=== PATIENT | female | born 1990 ===

== ENCOUNTER 2019-05-17 16:48 | Inpatient (IN) ==
[2019-05-17] MEDS ORDERED: ALBUTEROL/IPRATROPIUM 3 ML NEB RESP TX STA (17:32)
[2019-05-17] MEDS ORDERED: PIPERACILLIN/TAZOBACTAM 3,375 MG in SODIUM CHLORIDE 0.9% 100 ML IV STA (17:32)
[2019-05-17] MEDS ORDERED: VANCOMYCIN INJ 1,000 MG in SODIUM CHLORIDE 0.9% 250 ML IV STA (17:32)
[2019-05-17] MEDS ORDERED: SODIUM CHLORIDE 0.9% 1,000 ML IV STA (17:32)
[2019-05-17] MEDS ORDERED: VANCOMYCIN 1,000 MG VIAL ONE (17:47)
[2019-05-17 17:56] LABS: INR 0.9
[2019-05-17 18:04] LABS: Troponin I < 0.015 NG/ML (0.00-0.045)
[2019-05-17 18:07] LABS: Basophils # 0.1 10*3/uL (0.0-0.2); Basophils % 0.5 % (0.0-0.8); Eosinophils # 0.3 10*3/uL (0.0-0.87); Hematocrit 38.5 VOL% (35.7-47.0); Hemoglobin 11.3 GM/DL (12.0-16.0); Immature Granulocytes Absolute 0.17 #; Lymphocytes # 4.7 10*3/uL (1.4-4.0); Lymphocytes % 28.9 % (21.3-54.2); Mean Corpuscular HGB Conc 29.4 GM/DL (32-36); Mean Corpuscular Volume 84.1 FL (87-102); Mean Platelet Volume 9.6 FL (9.6-12.0); Monocytes % 6.3 % (1.7-12.7); Neutrophils % 61.3 % (38.7-73.9); Platelet Count 517 T/CUMM (130-400); Red Blood Count 4.58 MC/CUMM (3.8-5.5); Red Cell Distribution Width 16.7 % (9.3-17.3); White Blood Count 16.4 T/CUMM (4-12)
[2019-05-17 18:27] LABS: Apearance,Urine Slightly Hazy (Clear); Bacteria,Urine Occasional /HPF (Few); Bilirubin,Urine Negative (Negative); Blood, Urine Small mg/dL (Negative); Calcium Oxalate Crystals,Urine Moderate /HPF (Few); Glucose,Urine (UA) Negative (Negative); Ketones,Urine Negative (Negative); Mucus,Urine Occasional /LPF (Occasional); Nitrite,Urine Negative (Negative); Protein,Urine Negative; RBC,Urine 3 /HPF (0-4); Squamous Epithelial Cell,Urine Occasional /HPF (0-10); Urine Color Yellow (Yellow); Urine Specific Gravity 1.028 (1.001-1.035); Urine Urobilinogen < 2.0 EU/DL (0.2-1.0); WBC,Urine 2 /HPF (0-6)
[2019-05-17 18:56] LABS: Alanine Aminotransferase 34 U/L (13-56); Albumin 3.3 G/DL (3.4-5.0); Alkaline Phosphatase 110 U/L (45-117); Aspartate Amino Transferase 33 U/L (0-37); Bilirubin,Total < 0.39 MG/DL (0.2-1.0); Blood Urea Nitrogen 12 MG/DL (7-18); Calcium 8.9 MG/DL (8.5-10.1); Estimated Glom Filtration Rate 127 ML/MIN; Glucose 93 MG/DL (74-106); Osmolality,Calculated 276.5 MOS/KG (273-304); Total Protein 7.8 G/DL (6.4-8.3)
[2019-05-17] MEDS ORDERED: ALBUTEROL SULFATE INH PRN (21:53)
[2019-05-17] MEDS ORDERED: ACETAMINOPHEN 325 MG TABLET PO PRN (21:53)
[2019-05-17] MEDS ORDERED: MAGNESIUM SULF RIDER 2 GM in PREMIX 1 EACH IV PRN (21:53)
[2019-05-17] MEDS ORDERED: MAGNESIUM SULF RIDER 4 GM in PREMIX 1 EACH IV PRN (21:53)
[2019-05-17] MEDS: traZODone 50 MG TABLET PO SCH (22:04)
[2019-05-17] MEDS: DULoxetine 30 MG CAPSULE PO SCH (22:04)
[2019-05-17] MEDS: SODIUM CHLORIDE 0.9% 1,000 ML IV SCH (22:05)
[2019-05-18] MEDS: VANCOMYCIN INJ 1,500 MG in SODIUM CHLORIDE 0.9% 500 ML IV SCH ×3 (00:13→17:12)
[2019-05-18] MEDS: PIPERACILLIN/TAZOBACTAM 3,375 MG in SODIUM CHLORIDE 0.9% 100 ML IV SCH ×3 (02:34→18:29)
[2019-05-18 06:17] LABS: Calcium 8.2 MG/DL (8.5-10.1); Osmolality,Calculated 281.3 MOS/KG (273-304)
[2019-05-18] MEDS: POTASSIUM CHLORIDE 20 MEQ TABLET PO PRN ×4 (06:24→14:24)
[2019-05-18 06:40] LABS: Basophils # 0.1 10*3/uL (0.0-0.2); Basophils % 0.7 % (0.0-0.8); Eosinophils # 0.5 10*3/uL (0.0-0.87); Eosinophils % 3.6 % (0.00-10.9); Hematocrit 32.2 VOL% (35.7-47.0); Hemoglobin 9.8 GM/DL (12.0-16.0); Immature Granulocytes % 0.9 %; Immature Granulocytes Absolute 0.11 #; Lymphocytes # 3.5 10*3/uL (1.4-4.0); Lymphocytes % 28.3 % (21.3-54.2); Mean Corpuscular HGB Conc 30.4 GM/DL (32-36); Mean Platelet Volume 9.6 FL (9.6-12.0); Monocytes % 6.2 % (1.7-12.7); Neutrophils % 60.3 % (38.7-73.9); Platelet Count 389 T/CUMM (130-400); Red Blood Count 3.88 MC/CUMM (3.8-5.5); Red Cell Distribution Width 16.7 % (9.3-17.3); White Blood Count 12.5 T/CUMM (4-12)
[2019-05-18] MEDS: SODIUM CHLORIDE 0.9% 1,000 ML IV SCH (12:20)
[2019-05-18] MEDS: IBUPROFEN 600 MG TABLET PO PRN (16:07)
[2019-05-18] MEDS: MORPHINE 4 MG/1 ML VIAL IV PRN (17:11)
[2019-05-18] MEDS: DULoxetine 30 MG CAPSULE PO SCH (20:19)
[2019-05-18] MEDS: traZODone 50 MG TABLET PO SCH (20:19)
[2019-05-19] MEDS: VANCOMYCIN INJ 1,500 MG in SODIUM CHLORIDE 0.9% 500 ML IV SCH ×3 (01:54→18:07)
[2019-05-19] MEDS: MORPHINE 4 MG/1 ML VIAL IV PRN ×5 (02:12→19:33)
[2019-05-19 05:44] LABS: Calcium 8.4 MG/DL (8.5-10.1); Osmolality,Calculated 274.5 MOS/KG (273-304)
[2019-05-19 06:00] LABS: Basophils # 0.1 10*3/uL (0.0-0.2); Basophils % 0.6 % (0.0-0.8); Eosinophils # 0.8 10*3/uL (0.0-0.87); Eosinophils % 5.7 % (0.00-10.9); Hematocrit 34.6 VOL% (35.7-47.0); Hemoglobin 9.9 GM/DL (12.0-16.0); Immature Granulocytes % 1.7 %; Immature Granulocytes Absolute 0.24 #; Lymphocytes # 3.2 10*3/uL (1.4-4.0); Lymphocytes % 22.7 % (21.3-54.2); Mean Corpuscular HGB Conc 28.6 GM/DL (32-36); Mean Corpuscular Volume 84.4 FL (87-102); Mean Platelet Volume 9.4 FL (9.6-12.0); Monocytes % 5.1 % (1.7-12.7); NRBC # 0.03 10*3/uL; Neutrophils % 64.2 % (38.7-73.9); Platelet Count 367 T/CUMM (130-400); Red Cell Distribution Width 16.1 % (9.3-17.3); White Blood Count 14.3 T/CUMM (4-12)
[2019-05-19] MEDS: PIPERACILLIN/TAZOBACTAM 3,375 MG in SODIUM CHLORIDE 0.9% 100 ML IV SCH ×3 (06:05→21:48)
[2019-05-19] MEDS ORDERED: BUPIVACAINE 0.25% /EPI 10 ML VIAL ONE (08:06)
[2019-05-19] MEDS ORDERED: LIDOCAINE 1%/EPI INJ 20 ML VIAL ONE (08:06)
[2019-05-19] MEDS ORDERED: KETOROLAC 30 MG/1 ML VIAL IV ONE (09:45)
[2019-05-19] MEDS ORDERED: propofoL 200 MG/20 ML VIAL IV ONE (09:51)
[2019-05-19] MEDS ORDERED: MIDAZOLAM 2 MG/2 ML VIAL ONE (09:52)
[2019-05-19] MEDS ORDERED: DEXAMETHASONE 4 MG/1 ML VIAL ONE (09:52)
[2019-05-19] MEDS ORDERED: fentaNYL 100 MCG/2 ML VIAL ONE (09:52)
[2019-05-19] MEDS ORDERED: LIDOCAINE 2% 5 ML VIAL ONE (09:52)
[2019-05-19] MEDS ORDERED: SEVOFLURANE 1 UNIT/15 MINUTE INH ONE (09:52)
[2019-05-19] MEDS ORDERED: ONDANSETRON 4 MG/2 ML VIAL ONE (09:52)
[2019-05-19] MEDS ORDERED: KETOROLAC 30 MG/1 ML VIAL ONE (09:52)
[2019-05-19] MEDS ORDERED: HYDROmorphone 2 MG/1 ML VIAL ONE (09:53)
[2019-05-19] MEDS: HYDROmorphone 2 MG/1 ML VIAL IV PRN ×4 (09:55→10:10)
[2019-05-19] MEDS: SODIUM CHLORIDE 0.9% 1,000 ML IV SCH (16:35)
[2019-05-19] MEDS: IBUPROFEN 600 MG TABLET PO PRN (17:47)
[2019-05-19] MEDS: traZODone 50 MG TABLET PO SCH (20:14)
[2019-05-19] MEDS: DULoxetine 30 MG CAPSULE PO SCH (20:14)
[2019-05-20] MEDS: VANCOMYCIN INJ 1,500 MG in SODIUM CHLORIDE 0.9% 500 ML IV SCH ×2 (02:30→11:52)
[2019-05-20] MEDS: MORPHINE 4 MG/1 ML VIAL IV PRN ×2 (03:48→09:02)
[2019-05-20 04:57] LABS: Basophils % 0.2 % (0.0-0.8); Eosinophils # 0.1 10*3/uL (0.0-0.87); Eosinophils % 0.7 % (0.00-10.9); Immature Granulocytes % 1.8 %; Immature Granulocytes Absolute 0.33 #; Lymphocytes # 2.6 10*3/uL (1.4-4.0); Lymphocytes % 14.2 % (21.3-54.2); Mean Corpuscular HGB Conc 28.5 GM/DL (32-36); Mean Corpuscular Volume 84.7 FL (87-102); Mean Platelet Volume 9.4 FL (9.6-12.0); Monocytes % 4.5 % (1.7-12.7); NRBC # 0.03 10*3/uL; Neutrophils % 78.6 % (38.7-73.9); Platelet Count 387 T/CUMM (130-400); Red Blood Count 3.93 MC/CUMM (3.8-5.5); Red Cell Distribution Width 16.3 % (9.3-17.3); White Blood Count 17.9 T/CUMM (4-12)
[2019-05-20 05:19] LABS: Calcium 8.5 MG/DL (8.5-10.1); Osmolality,Calculated 281.4 MOS/KG (273-304)
[2019-05-20 05:41] LABS: Hematocrit 32.1 VOL% (35.7-47.0); Hemoglobin 9.7 GM/DL (12.0-16.0)
[2019-05-20 05:42] LABS: Hypochromasia 1+; Platelet Estimate Adequate
[2019-05-20] MEDS: ONDANSETRON 4 MG/2 ML VIAL IV PRN ×2 (06:35→15:03)
[2019-05-20] MEDS: PIPERACILLIN/TAZOBACTAM 3,375 MG in SODIUM CHLORIDE 0.9% 100 ML IV SCH ×2 (07:18→20:54)
[2019-05-20] MEDS ORDERED: HYDROmorphone 2 MG/1 ML VIAL IV ONE (10:25)
[2019-05-20] MEDS ORDERED: ALBUTEROL 2.5 MG/3 ML NEB RESP TX PRN (10:30)
[2019-05-20] MEDS: SODIUM HYPOCHLORITE 0.25% IRRIG 473 ML BOTTLE TOP SCH (10:49)
[2019-05-20] MEDS: ACETIC ACID 0.25% IRRIGATION 1,000 ML BOTTLE IRRIG SCH (10:49)
[2019-05-20] MEDS ORDERED: oxyCODONE/ACETAMINOPHEN 5-325 MG TABLET PO PRN (10:55)
[2019-05-20] MEDS: HYDROmorphone 2 MG/1 ML VIAL IV PRN ×4 (12:19→20:56)
[2019-05-20] MEDS: oxyCODONE/ACETAMINOPHEN 5-325 MG TABLET PO PRN (14:58)
[2019-05-20] MEDS: traZODone 50 MG TABLET PO SCH (20:56)
[2019-05-20] MEDS: DULoxetine 30 MG CAPSULE PO SCH (20:56)
[2019-05-21] MEDS: HYDROmorphone 2 MG/1 ML VIAL IV PRN ×5 (00:42→10:17)
[2019-05-21] MEDS: oxyCODONE/ACETAMINOPHEN 5-325 MG TABLET PO PRN (01:46)
[2019-05-21] MEDS: PIPERACILLIN/TAZOBACTAM 3,375 MG in SODIUM CHLORIDE 0.9% 100 ML IV SCH (03:43)
[2019-05-21] MEDS: ONDANSETRON 4 MG/2 ML VIAL IV PRN (05:30)
[2019-05-21 05:58] LABS: Basophils # 0.1 10*3/uL (0.0-0.2); Basophils % 0.4 % (0.0-0.8); Eosinophils # 0.7 10*3/uL (0.0-0.87); Eosinophils % 4.5 % (0.00-10.9); Hematocrit 34.1 VOL% (35.7-47.0); Immature Granulocytes % 2.3 %; Immature Granulocytes Absolute 0.37 #; Lymphocytes # 3.3 10*3/uL (1.4-4.0); Lymphocytes % 20.4 % (21.3-54.2); Mean Platelet Volume 9.4 FL (9.6-12.0); Monocytes % 5.8 % (1.7-12.7); NRBC # 0.02 10*3/uL; Neutrophils % 66.6 % (38.7-73.9); Platelet Count 356 T/CUMM (130-400); Red Blood Count 4.06 MC/CUMM (3.8-5.5); Red Cell Distribution Width 16.7 % (9.3-17.3); White Blood Count 16.1 T/CUMM (4-12)
[2019-05-21 06:52] LABS: Anisocytosis 1+; Hypochromasia 1+; Microcytosis 1+; Ovalocytes Slight; Platelet Estimate Normal; Polychromasia Slight
[2019-05-21] MEDS: ACETIC ACID 0.25% IRRIGATION 1,000 ML BOTTLE IRRIG SCH (09:44)
[2019-05-21] MEDS: SODIUM HYPOCHLORITE 0.25% IRRIG 473 ML BOTTLE TOP SCH (09:45)
[2019-05-21 11:54] VITALS: BP 106/60
== END 2019-05-21 12:05 | disposition home or self-care (01) | DRG 584 ==
LOC: N.ED 16:48 → SUATTDRO 20:20 → N.EDINP 20:20 → N.2E 21:48
PROVIDERS: ADMIT Internal Medicine; ATTEND Internal Medicine Geriatric Medicine

== ENCOUNTER 2019-06-20 09:09 | Inpatient (IN) ==
[~2019-06-20 09:09] MED LIST: LACTATED RINGERS 1,000 ML IV SCH
[2019-06-20] MEDS ORDERED: BUPIVACAINE MPF 0.25% 30 ML VIAL ONE (09:42)
[2019-06-20] MEDS ORDERED: LIDOCAINE 1%/EPI INJ 20 ML VIAL ONE (09:42)
[2019-06-20] MEDS ORDERED: HYDROmorphone 2 MG/1 ML VIAL ONE (10:40)
[2019-06-20] MEDS ORDERED: ONDANSETRON 4 MG/2 ML VIAL ONE ×2 (10:40→11:01)
[2019-06-20] MEDS ORDERED: MEPERIDINE 25 MG/1 ML VIAL ONE (10:40)
[2019-06-20] MEDS: MEPERIDINE 25 MG/1 ML VIAL IV PRN (10:44)
[2019-06-20] MEDS: HYDROmorphone 2 MG/1 ML VIAL IV PRN ×9 (10:50→22:48)
[2019-06-20] MEDS ORDERED: ONDANSETRON 4 MG/2 ML VIAL IV PRN (10:50)
[2019-06-20] MEDS ORDERED: LORazepam 2 MG/1 ML VIAL ONE (10:58)
[2019-06-20] MEDS ORDERED: fentaNYL 100 MCG/2 ML VIAL ONE (11:00)
[2019-06-20] MEDS ORDERED: SEVOFLURANE 1 UNIT/15 MINUTE INH ONE (11:00)
[2019-06-20] MEDS ORDERED: LIDOCAINE 2% 5 ML VIAL ONE (11:00)
[2019-06-20] MEDS ORDERED: propofoL 200 MG/20 ML VIAL IV ONE (11:00)
[2019-06-20] MEDS ORDERED: PHENYLEPHRINE 1 MG/10 ML SYRINGE IV ONE (11:01)
[2019-06-20] MEDS ORDERED: MIDAZOLAM 2 MG/2 ML VIAL ONE ×2 (11:01→11:31)
[2019-06-20] MEDS ORDERED: LORazepam 2 MG/1 ML VIAL IV ONE (11:07)
[2019-06-20] MEDS ORDERED: MIDAZOLAM 2 MG/2 ML VIAL IV ONE (11:31)
[2019-06-20] MEDS ORDERED: KETAMINE 500 MG/10 ML VIAL ONE (11:50)
[2019-06-20] MEDS ORDERED: KETAMINE 500 MG/10 ML VIAL IV ONE (11:58)
[2019-06-20] MEDS ORDERED: ALBUTEROL 2.5 MG/3 ML NEB RESP TX PRN (12:35)
[2019-06-20] MEDS: LACTATED RINGERS 1,000 ML IV SCH ×3 (13:48→20:27)
[2019-06-20 14:20] LABS: Calcium 8.6 MG/DL (8.5-10.1); Osmolality,Calculated 272.7 MOS/KG (273-304)
[2019-06-20 14:24] LABS: Basophils # 0.1 10*3/uL (0.0-0.2); Basophils % 0.5 % (0.0-0.8); Eosinophils # 0.8 10*3/uL (0.0-0.87); Eosinophils % 5.2 % (0.00-10.9); Hematocrit 35.5 VOL% (35.7-47.0); Immature Granulocytes % 0.7 %; Lymphocytes # 3.5 10*3/uL (1.4-4.0); Lymphocytes % 23.6 % (21.3-54.2); Mean Corpuscular HGB Conc 29.3 GM/DL (32-36); Mean Corpuscular Volume 80.5 FL (87-102); Mean Platelet Volume 9.4 FL (9.6-12.0); Monocytes % 3.6 % (1.7-12.7); Neutrophils % 66.4 % (38.7-73.9); Platelet Count 397 T/CUMM (130-400); Red Blood Count 4.41 MC/CUMM (3.8-5.5); Red Cell Distribution Width 17.7 % (9.3-17.3)
[2019-06-20] MEDS: ERTAPENEM 1,000 MG in SODIUM CHLORIDE 0.9% 100 ML IV SCH (14:27)
[2019-06-20 14:34] LABS: Hemoglobin 10.4 GM/DL (12.0-16.0)
[2019-06-20] MEDS: KETOROLAC 15 MG/1 ML VIAL IV PRN (15:36)
[2019-06-20] MEDS: oxyCODONE/ACETAMINOPHEN 5-325 MG TABLET PO PRN (17:52)
[2019-06-20] MEDS: DULoxetine 30 MG CAPSULE PO SCH (21:14)
[2019-06-21] MEDS: HYDROmorphone 2 MG/1 ML VIAL IV PRN ×10 (01:31→23:49)
[2019-06-21] MEDS: LACTATED RINGERS 1,000 ML IV SCH ×3 (04:11→21:59)
[2019-06-21] MEDS: oxyCODONE/ACETAMINOPHEN 5-325 MG TABLET PO PRN ×2 (04:45→10:28)
[2019-06-21] MEDS: ENOXAPARIN 40 MG/0.4 ML SYRINGE SUBCUT SCH (06:02)
[2019-06-21 06:24] LABS: Calcium 8.4 MG/DL (8.5-10.1); Osmolality,Calculated 271.8 MOS/KG (273-304)
[2019-06-21 06:27] LABS: Basophils # 0.1 10*3/uL (0.0-0.2); Basophils % 0.7 % (0.0-0.8); Eosinophils # 0.8 10*3/uL (0.0-0.87); Eosinophils % 7.6 % (0.00-10.9); Hematocrit 31.4 VOL% (35.7-47.0); Immature Granulocytes % 0.9 %; Immature Granulocytes Absolute 0.09 #; Lymphocytes # 3.2 10*3/uL (1.4-4.0); Lymphocytes % 31.7 % (21.3-54.2); Mean Corpuscular HGB Conc 28.7 GM/DL (32-36); Mean Corpuscular Volume 83.1 FL (87-102); Mean Platelet Volume 9.5 FL (9.6-12.0); Monocytes % 5.3 % (1.7-12.7); Neutrophils % 53.8 % (38.7-73.9); Platelet Count 327 T/CUMM (130-400); Red Blood Count 3.78 MC/CUMM (3.8-5.5); Red Cell Distribution Width 17.8 % (9.3-17.3)
[2019-06-21 06:34] LABS: Hypochromasia 2+; Microcytosis Slight; Platelet Estimate Adequate
[2019-06-21] MEDS: ONDANSETRON 4 MG/2 ML VIAL IV PRN ×2 (08:56→20:06)
[2019-06-21] MEDS ORDERED: DAPTOmycin 350 MG VIAL IV SCH (09:00)
[2019-06-21] MEDS: ERTAPENEM 1,000 MG in SODIUM CHLORIDE 0.9% 100 ML IV SCH (15:05)
[2019-06-21] MEDS: DULoxetine 30 MG CAPSULE PO SCH (20:07)
[2019-06-22] MEDS: HYDROmorphone 2 MG/1 ML VIAL IV PRN ×6 (02:05→22:10)
[2019-06-22] MEDS: ENOXAPARIN 40 MG/0.4 ML SYRINGE SUBCUT SCH (05:16)
[2019-06-22] MEDS: LACTATED RINGERS 1,000 ML IV SCH ×3 (05:17→22:11)
[2019-06-22] MEDS: KETOROLAC 15 MG/1 ML VIAL IV PRN (10:00)
[2019-06-22] MEDS: ERTAPENEM 1,000 MG in SODIUM CHLORIDE 0.9% 100 ML IV SCH (14:42)
[2019-06-22] MEDS: oxyCODONE/ACETAMINOPHEN 5-325 MG TABLET PO PRN (17:32)
[2019-06-22] MEDS: ONDANSETRON 4 MG/2 ML VIAL IV PRN (19:54)
[2019-06-22] MEDS: DULoxetine 30 MG CAPSULE PO SCH (19:59)
[2019-06-23] MEDS: HYDROmorphone 2 MG/1 ML VIAL IV PRN ×9 (00:07→23:45)
[2019-06-23] MEDS: LACTATED RINGERS 1,000 ML IV SCH (05:38)
[2019-06-23] MEDS: oxyCODONE/ACETAMINOPHEN 5-325 MG TABLET PO PRN ×3 (06:15→18:49)
[2019-06-23] MEDS: ENOXAPARIN 40 MG/0.4 ML SYRINGE SUBCUT SCH (06:20)
[2019-06-23] MEDS: KETOROLAC 15 MG/1 ML VIAL IV PRN (08:14)
[2019-06-23] MEDS: ERTAPENEM 1,000 MG in SODIUM CHLORIDE 0.9% 100 ML IV SCH (13:10)
[2019-06-23] MEDS: DULoxetine 30 MG CAPSULE PO SCH (20:37)
[2019-06-24] MEDS: oxyCODONE/ACETAMINOPHEN 5-325 MG TABLET PO PRN ×2 (01:00→20:53)
[2019-06-24] MEDS: HYDROmorphone 2 MG/1 ML VIAL IV PRN ×10 (02:20→22:18)
[2019-06-24] MEDS: ENOXAPARIN 40 MG/0.4 ML SYRINGE SUBCUT SCH (05:00)
[2019-06-24] MEDS: ONDANSETRON 4 MG/2 ML VIAL IV PRN ×2 (06:10→20:53)
[2019-06-24] MEDS: ERTAPENEM 1,000 MG in SODIUM CHLORIDE 0.9% 100 ML IV SCH (13:08)
[2019-06-24] MEDS: DULoxetine 30 MG CAPSULE PO SCH (20:47)
[2019-06-25] MEDS: HYDROmorphone 2 MG/1 ML VIAL IV PRN ×11 (00:03→22:20)
[2019-06-25] MEDS: ONDANSETRON 4 MG/2 ML VIAL IV PRN ×2 (04:09→20:24)
[2019-06-25] MEDS: ENOXAPARIN 40 MG/0.4 ML SYRINGE SUBCUT SCH (05:51)
[2019-06-25] MEDS: oxyCODONE/ACETAMINOPHEN 5-325 MG TABLET PO PRN ×2 (05:54→12:51)
[2019-06-25] MEDS ORDERED: SODIUM HYPOCHLORITE 0.25% IRR 1 APPLIC in IV BAG 1 EACH IRRIG PRN (09:30)
[2019-06-25] MEDS: ERTAPENEM 1,000 MG in SODIUM CHLORIDE 0.9% 100 ML IV SCH (14:13)
[2019-06-25] MEDS: DULoxetine 30 MG CAPSULE PO SCH (20:24)
[2019-06-26] MEDS: ENOXAPARIN 40 MG/0.4 ML SYRINGE SUBCUT SCH (05:59)
[2019-06-26] MEDS: HYDROmorphone 2 MG/1 ML VIAL IV PRN ×7 (06:18→23:16)
[2019-06-26] MEDS: ERTAPENEM 1,000 MG in SODIUM CHLORIDE 0.9% 100 ML IV SCH (15:25)
[2019-06-26] MEDS: DULoxetine 30 MG CAPSULE PO SCH (20:43)
[2019-06-27] MEDS: HYDROmorphone 2 MG/1 ML VIAL IV PRN ×8 (01:42→22:09)
[2019-06-27] MEDS: ENOXAPARIN 40 MG/0.4 ML SYRINGE SUBCUT SCH (06:38)
[2019-06-27] MEDS: oxyCODONE/ACETAMINOPHEN 5-325 MG TABLET PO PRN (11:00)
[2019-06-27] MEDS: ERTAPENEM 1,000 MG in SODIUM CHLORIDE 0.9% 100 ML IV SCH (14:14)
[2019-06-27] MEDS: ONDANSETRON 4 MG/2 ML VIAL IV PRN ×2 (14:37→22:20)
[2019-06-27] MEDS: DULoxetine 30 MG CAPSULE PO SCH (21:26)
[2019-06-28] MEDS: HYDROmorphone 2 MG/1 ML VIAL IV PRN ×13 (00:24→22:27)
[2019-06-28] MEDS: ENOXAPARIN 40 MG/0.4 ML SYRINGE SUBCUT SCH (05:06)
[2019-06-28] MEDS: ONDANSETRON 4 MG/2 ML VIAL IV PRN (05:44)
[2019-06-28] MEDS ORDERED: BUPIVACAINE MPF 0.25% 30 ML VIAL ONE (06:38)
[2019-06-28] MEDS ORDERED: LIDOCAINE 1%/EPI INJ 20 ML VIAL ONE (06:38)
[2019-06-28] MEDS ORDERED: MEPERIDINE 25 MG/1 ML VIAL ONE (07:58)
[2019-06-28] MEDS ORDERED: HYDROmorphone 2 MG/1 ML VIAL ONE (07:58)
[2019-06-28] MEDS ORDERED: ONDANSETRON 4 MG/2 ML VIAL ONE ×2 (07:59→08:05)
[2019-06-28] MEDS ORDERED: ONDANSETRON 4 MG/2 ML VIAL IV PRN (08:00)
[2019-06-28] MEDS ORDERED: propofoL 200 MG/20 ML VIAL IV ONE (08:04)
[2019-06-28] MEDS ORDERED: SEVOFLURANE 1 UNIT/15 MINUTE INH ONE (08:04)
[2019-06-28] MEDS ORDERED: LIDOCAINE 2% 5 ML VIAL ONE (08:04)
[2019-06-28] MEDS ORDERED: DEXAMETHASONE 4 MG/1 ML VIAL ONE (08:05)
[2019-06-28] MEDS ORDERED: fentaNYL 100 MCG/2 ML VIAL ONE (08:05)
[2019-06-28] MEDS ORDERED: MIDAZOLAM 2 MG/2 ML VIAL ONE (08:05)
[2019-06-28] MEDS ORDERED: KETAMINE 500 MG/10 ML VIAL ONE (08:05)
[2019-06-28] MEDS ORDERED: MEPERIDINE 25 MG/1 ML VIAL IV ONE (08:20)
[2019-06-28] MEDS ORDERED: LORazepam 2 MG/1 ML VIAL IV ONE ×2 (08:33→08:39)
[2019-06-28] MEDS ORDERED: LORazepam 2 MG/1 ML VIAL ONE (08:34)
[2019-06-28] MEDS: oxyCODONE/ACETAMINOPHEN 5-325 MG TABLET PO PRN (09:50)
[2019-06-28] MEDS: ERTAPENEM 1,000 MG in SODIUM CHLORIDE 0.9% 100 ML IV SCH (13:08)
[2019-06-28] MEDS: DULoxetine 30 MG CAPSULE PO SCH (20:21)
[2019-06-29] MEDS: HYDROmorphone 2 MG/1 ML VIAL IV PRN ×8 (00:27→20:23)
[2019-06-29] MEDS: oxyCODONE/ACETAMINOPHEN 5-325 MG TABLET PO PRN ×3 (01:37→18:42)
[2019-06-29] MEDS: ENOXAPARIN 40 MG/0.4 ML SYRINGE SUBCUT SCH (05:31)
[2019-06-29] MEDS: ONDANSETRON 4 MG/2 ML VIAL IV PRN (06:00)
[2019-06-29 06:22] LABS: Basophils # 0.1 10*3/uL (0.0-0.2); Basophils % 0.4 % (0.0-0.8); Eosinophils # 0.2 10*3/uL (0.0-0.87); Hemoglobin 9.3 GM/DL (12.0-16.0); Immature Granulocytes Absolute 0.16 #; Lymphocytes # 3.7 10*3/uL (1.4-4.0); Lymphocytes % 23.5 % (21.3-54.2); Mean Corpuscular HGB Conc 28.5 GM/DL (32-36); Mean Corpuscular Volume 82.5 FL (87-102); Mean Platelet Volume 9.4 FL (9.6-12.0); Monocytes % 5.4 % (1.7-12.7); NRBC # 0.03 10*3/uL; Neutrophils % 68.7 % (38.7-73.9); Platelet Count 444 T/CUMM (130-400); Red Blood Count 3.95 MC/CUMM (3.8-5.5); Red Cell Distribution Width 18.1 % (9.3-17.3); White Blood Count 15.8 T/CUMM (4-12)
[2019-06-29 06:49] LABS: Hematocrit 31.4 VOL% (35.7-47.0)
[2019-06-29 07:03] LABS: Calcium 8.5 MG/DL (8.5-10.1); Osmolality,Calculated 274.8 MOS/KG (273-304)
[2019-06-29] MEDS ORDERED: HYDROmorphone 2 MG/1 ML VIAL IV ONE (08:20)
[2019-06-29 08:43] LABS: Platelet Estimate Increased; Polychromasia Slight
[2019-06-29 08:44] LABS: Hypochromasia 1+; Microcytosis 1+
[2019-06-29] MEDS ORDERED: POTASSIUM CHLORIDE 20 MEQ TABLET PO ONE (12:41)
[2019-06-29] MEDS: clonazePAM 0.5 MG TABLET PO PRN ×2 (13:44→20:22)
[2019-06-29] MEDS: ERTAPENEM 1,000 MG in SODIUM CHLORIDE 0.9% 100 ML IV SCH (13:44)
[2019-06-29] MEDS: DULoxetine 30 MG CAPSULE PO SCH (20:07)
[2019-06-29] MEDS: QUEtiapine 25 MG TABLET PO SCH (20:22)
[2019-06-30] MEDS: HYDROmorphone 2 MG/1 ML VIAL IV PRN ×6 (05:19→21:07)
[2019-06-30] MEDS: ENOXAPARIN 40 MG/0.4 ML SYRINGE SUBCUT SCH (05:21)
[2019-06-30 09:14] LABS: Basophils # 0.1 10*3/uL (0.0-0.2); Basophils % 0.6 % (0.0-0.8); Eosinophils # 0.8 10*3/uL (0.0-0.87); Eosinophils % 7.7 % (0.00-10.9); Hematocrit 33.4 VOL% (35.7-47.0); Hemoglobin 9.4 GM/DL (12.0-16.0); Immature Granulocytes % 0.8 %; Immature Granulocytes Absolute 0.08 #; Lymphocytes # 3.6 10*3/uL (1.4-4.0); Mean Corpuscular HGB Conc 28.1 GM/DL (32-36); Mean Corpuscular Volume 82.5 FL (87-102); Mean Platelet Volume 9.5 FL (9.6-12.0); Monocytes % 4.9 % (1.7-12.7); Platelet Count 413 T/CUMM (130-400); Red Blood Count 4.05 MC/CUMM (3.8-5.5); Red Cell Distribution Width 18.2 % (9.3-17.3); White Blood Count 10.7 T/CUMM (4-12)
[2019-06-30] MEDS: oxyCODONE/ACETAMINOPHEN 5-325 MG TABLET PO PRN (09:57)
[2019-06-30] MEDS: ERTAPENEM 1,000 MG in SODIUM CHLORIDE 0.9% 100 ML IV SCH (14:57)
[2019-06-30] MEDS: DULoxetine 30 MG CAPSULE PO SCH (20:58)
[2019-06-30] MEDS: clonazePAM 0.5 MG TABLET PO PRN (20:58)
[2019-06-30] MEDS: QUEtiapine 25 MG TABLET PO SCH (20:58)
[2019-07-01] MEDS: HYDROmorphone 2 MG/1 ML VIAL IV PRN ×9 (01:21→23:00)
[2019-07-01] MEDS: ENOXAPARIN 40 MG/0.4 ML SYRINGE SUBCUT SCH (06:08)
[2019-07-01 06:34] LABS: Basophils # 0.1 10*3/uL (0.0-0.2); Basophils % 0.7 % (0.0-0.8); Eosinophils # 0.9 10*3/uL (0.0-0.87); Eosinophils % 9.5 % (0.00-10.9); Hematocrit 31.8 VOL% (35.7-47.0); Hemoglobin 9.3 GM/DL (12.0-16.0); Immature Granulocytes % 0.9 %; Immature Granulocytes Absolute 0.09 #; Lymphocytes # 2.9 10*3/uL (1.4-4.0); Lymphocytes % 29.4 % (21.3-54.2); Mean Corpuscular HGB Conc 29.2 GM/DL (32-36); Mean Corpuscular Volume 80.5 FL (87-102); Mean Platelet Volume 9.2 FL (9.6-12.0); Monocytes % 6.2 % (1.7-12.7); NRBC # 0.02 10*3/uL; Neutrophils % 53.3 % (38.7-73.9); Platelet Count 390 T/CUMM (130-400); Red Blood Count 3.95 MC/CUMM (3.8-5.5); Red Cell Distribution Width 17.8 % (9.3-17.3); White Blood Count 9.9 T/CUMM (4-12)
[2019-07-01 07:10] LABS: Hypochromasia 1+; Microcytosis 1+
[2019-07-01 07:11] LABS: Ovalocytes Slight; Platelet Estimate Normal; Polychromasia Slight; Tear Drop Cells Slight
[2019-07-01] MEDS ORDERED: LACTATED RINGERS 1,000 ML IV SCH (09:00)
[2019-07-01] MEDS ORDERED: HYDROmorphone 2 MG/1 ML VIAL ONE ×2 (09:18→09:55)
[2019-07-01] MEDS ORDERED: ONDANSETRON 4 MG/2 ML VIAL ONE ×2 (09:18→09:32)
[2019-07-01] MEDS ORDERED: MEPERIDINE 25 MG/1 ML VIAL ONE (09:19)
[2019-07-01] MEDS ORDERED: LORazepam 2 MG/1 ML VIAL ONE (09:20)
[2019-07-01] MEDS ORDERED: MEPERIDINE 25 MG/1 ML VIAL IV ONE (09:20)
[2019-07-01] MEDS ORDERED: ONDANSETRON 4 MG/2 ML VIAL IV PRN (09:20)
[2019-07-01] MEDS ORDERED: LORazepam 2 MG/1 ML VIAL IV ONE (09:21)
[2019-07-01] MEDS ORDERED: propofoL 200 MG/20 ML VIAL IV ONE (09:30)
[2019-07-01] MEDS ORDERED: LIDOCAINE 2% 5 ML VIAL ONE (09:30)
[2019-07-01] MEDS ORDERED: fentaNYL 100 MCG/2 ML VIAL ONE (09:31)
[2019-07-01] MEDS ORDERED: SEVOFLURANE 1 UNIT/15 MINUTE INH ONE (09:31)
[2019-07-01] MEDS ORDERED: KETAMINE 500 MG/10 ML VIAL ONE (09:31)
[2019-07-01] MEDS ORDERED: DEXAMETHASONE 4 MG/1 ML VIAL ONE (09:32)
[2019-07-01] MEDS ORDERED: MIDAZOLAM 2 MG/2 ML VIAL ONE (09:32)
[2019-07-01] MEDS ORDERED: HYDROmorphone 2 MG/1 ML VIAL IV ONE (09:55)
[2019-07-01] MEDS ORDERED: PROMETHAZINE 25 MG/1 ML VIAL ONE (10:29)
[2019-07-01] MEDS ORDERED: PROMETHAZINE INJ 12.5 MG in SODIUM CHLORIDE 0.9% 50 ML IV ONE (10:29)
[2019-07-01] MEDS ORDERED: KETOROLAC 30 MG/1 ML VIAL IV ONE (11:30)
[2019-07-01] MEDS ORDERED: ACETAMINOPHEN INJ 1,000 MG in PREMIX 1 EACH IV ONE (11:30)
[2019-07-01] MEDS ORDERED: ACETAMINOPHEN 1,000 MG/100 ML VIAL IV ONE (11:31)
[2019-07-01] MEDS ORDERED: KETOROLAC 30 MG/1 ML VIAL ONE (11:31)
[2019-07-01] MEDS: oxyCODONE/ACETAMINOPHEN 5-325 MG TABLET PO PRN ×2 (13:15→21:50)
[2019-07-01] MEDS: ERTAPENEM 1,000 MG in SODIUM CHLORIDE 0.9% 100 ML IV SCH (13:15)
[2019-07-01] MEDS: clonazePAM 0.5 MG TABLET PO PRN (21:51)
[2019-07-01] MEDS: DULoxetine 30 MG CAPSULE PO SCH (21:52)
[2019-07-01] MEDS: QUEtiapine 25 MG TABLET PO SCH (21:52)
[2019-07-02] MEDS: HYDROmorphone 2 MG/1 ML VIAL IV PRN ×6 (01:10→18:44)
[2019-07-02] MEDS: ONDANSETRON 4 MG/2 ML VIAL IV PRN ×2 (01:17→13:50)
[2019-07-02] MEDS ORDERED: KETOROLAC 30 MG/1 ML VIAL IV ONE (03:37)
[2019-07-02] MEDS: oxyCODONE/ACETAMINOPHEN 5-325 MG TABLET PO PRN ×4 (04:03→22:20)
[2019-07-02] MEDS: ENOXAPARIN 40 MG/0.4 ML SYRINGE SUBCUT SCH (05:55)
[2019-07-02] MEDS: KETOROLAC 30 MG/1 ML VIAL IV SCH ×3 (08:17→22:19)
[2019-07-02] MEDS: MEPERIDINE 25 MG/1 ML VIAL IV PRN (10:48)
[2019-07-02] MEDS ORDERED: MEPERIDINE 25 MG/1 ML VIAL IV PRN (10:53)
[2019-07-02] MEDS: fentaNYL 25 MCG/HR PATCH TRANSDERM SCH ×2 (11:35→12:11)
[2019-07-02] MEDS: ERTAPENEM 1,000 MG in SODIUM CHLORIDE 0.9% 100 ML IV SCH (14:05)
[2019-07-02] MEDS: DULoxetine 30 MG CAPSULE PO SCH (22:20)
[2019-07-02] MEDS: clonazePAM 0.5 MG TABLET PO PRN (22:20)
[2019-07-02] MEDS: QUEtiapine 25 MG TABLET PO SCH (22:21)
[2019-07-03] MEDS: KETOROLAC 30 MG/1 ML VIAL IV SCH ×4 (01:30→19:20)
[2019-07-03 06:39] LABS: Basophils # 0.1 10*3/uL (0.0-0.2); Basophils % 0.6 % (0.0-0.8); Eosinophils # 0.9 10*3/uL (0.0-0.87); Hematocrit 31.2 VOL% (35.7-47.0); Hemoglobin 8.9 GM/DL (12.0-16.0); Immature Granulocytes % 1.1 %; Immature Granulocytes Absolute 0.12 #; Lymphocytes # 3.7 10*3/uL (1.4-4.0); Lymphocytes % 33.4 % (21.3-54.2); Mean Corpuscular HGB Conc 28.5 GM/DL (32-36); Mean Corpuscular Volume 81.7 FL (87-102); Mean Platelet Volume 9.2 FL (9.6-12.0); Monocytes % 4.8 % (1.7-12.7); Neutrophils % 52.1 % (38.7-73.9); Platelet Count 408 T/CUMM (130-400); Red Blood Count 3.82 MC/CUMM (3.8-5.5)
[2019-07-03 06:45] LABS: Calcium 8.3 MG/DL (8.5-10.1); Osmolality,Calculated 273.7 MOS/KG (273-304)
[2019-07-03 06:50] LABS: Hypochromasia 1+; Microcytosis Slight; Platelet Estimate Adequate
[2019-07-03] MEDS: ENOXAPARIN 40 MG/0.4 ML SYRINGE SUBCUT SCH (06:51)
[2019-07-03] MEDS: HYDROmorphone 2 MG/1 ML VIAL IV PRN ×3 (09:31→21:58)
[2019-07-03] MEDS: oxyCODONE/ACETAMINOPHEN 5-325 MG TABLET PO PRN ×2 (11:55→20:29)
[2019-07-03] MEDS: ONDANSETRON 4 MG/2 ML VIAL IV PRN (14:13)
[2019-07-03] MEDS: ERTAPENEM 1,000 MG in SODIUM CHLORIDE 0.9% 100 ML IV SCH (14:18)
[2019-07-03] MEDS: DULoxetine 30 MG CAPSULE PO SCH (20:28)
[2019-07-03] MEDS: clonazePAM 0.5 MG TABLET PO PRN (20:28)
[2019-07-03] MEDS: QUEtiapine 25 MG TABLET PO SCH (20:29)
[2019-07-04] MEDS: KETOROLAC 30 MG/1 ML VIAL IV SCH ×2 (01:42→08:30)
[2019-07-04] MEDS: ENOXAPARIN 40 MG/0.4 ML SYRINGE SUBCUT SCH (05:09)
[2019-07-04] MEDS ORDERED: LIDOCAINE 1%/EPI INJ 20 ML VIAL ONE (06:35)
[2019-07-04] MEDS ORDERED: BUPIVACAINE MPF 0.25% 30 ML VIAL ONE (06:35)
[2019-07-04] MEDS ORDERED: DEXMEDETOMIDINE 200 MCG/2 ML VIAL ONE (06:36)
[2019-07-04] MEDS ORDERED: propofoL 200 MG/20 ML VIAL IV ONE (07:47)
[2019-07-04] MEDS ORDERED: LIDOCAINE 2% 5 ML VIAL ONE (07:47)
[2019-07-04] MEDS ORDERED: KETAMINE 500 MG/10 ML VIAL ONE (07:48)
[2019-07-04] MEDS ORDERED: SEVOFLURANE 1 UNIT/15 MINUTE INH ONE (07:48)
[2019-07-04] MEDS ORDERED: MIDAZOLAM 2 MG/2 ML VIAL ONE (07:48)
[2019-07-04] MEDS ORDERED: ONDANSETRON 4 MG/2 ML VIAL ONE (07:48)
[2019-07-04] MEDS ORDERED: KETOROLAC 60 MG/2 ML VIAL IM ONE (07:48)
[2019-07-04] MEDS ORDERED: fentaNYL 100 MCG/2 ML VIAL ONE (07:48)
[2019-07-04] MEDS ORDERED: DEXAMETHASONE 4 MG/1 ML VIAL ONE (07:48)
[2019-07-04] MEDS ORDERED: SUCCINYLCHOLINE 200 MG/10 ML VIAL ONE (07:49)
[2019-07-04] MEDS ORDERED: MEPERIDINE 25 MG/1 ML VIAL IV PRN (07:51)
[2019-07-04] MEDS ORDERED: HYDROmorphone 2 MG/1 ML VIAL IV PRN (07:51)
[2019-07-04] MEDS ORDERED: ONDANSETRON 4 MG/2 ML VIAL IV PRN (07:51)
[2019-07-04] MEDS: oxyCODONE/ACETAMINOPHEN 5-325 MG TABLET PO PRN (11:23)
[2019-07-04 11:55] VITALS: BP 122/67
[2019-07-04] MEDS: ERTAPENEM 1,000 MG in SODIUM CHLORIDE 0.9% 100 ML IV SCH (13:28)
== END 2019-07-04 15:34 | disposition home health service (06) | DRG 584 ==
LOC: N.OR 09:09 → N.SDSINP 09:11 → N.3E 12:14
PROVIDERS: ADMIT Surgery; ATTEND Surgery

== ENCOUNTER 2019-07-20 23:49 | Inpatient (IN) ==
[2019-07-21] MEDS ORDERED: CLINDAMYCIN INJ 600 MG in PREMIX 1 EACH IV STA (00:28)
[2019-07-21] MEDS ORDERED: PIPERACILLIN/TAZOBACTAM 3,375 MG in SODIUM CHLORIDE 0.9% 100 ML IV STA (00:28)
[2019-07-21] MEDS ORDERED: ONDANSETRON 4 MG/2 ML VIAL IV PRN (00:29)
[2019-07-21] MEDS ORDERED: ACETAMINOPHEN 325 MG TABLET PO PRN ×2 (00:29→14:45)
[2019-07-21] MEDS: DEXTROSE 5% NACL 0.45% 1,000 ML IV SCH ×3 (00:56→21:07)
[2019-07-21 00:58] LABS: Calcium 8.7 MG/DL (8.5-10.1); Osmolality,Calculated 264.4 MOS/KG (273-304)
[2019-07-21 01:00] LABS: Hematocrit 32.8 VOL% (35.7-47.0); Monocytes % 6.4 % (1.7-12.7)
[2019-07-21] MEDS ORDERED: POTASSIUM CHLORIDE 20 MEQ TABLET PO STA (01:02)
[2019-07-21 01:13] LABS: Basophils # 0.1 10*3/uL (0.0-0.2); Basophils % 0.6 % (0.0-0.8); Eosinophils # 0.5 10*3/uL (0.0-0.87); Eosinophils % 4.5 % (0.00-10.9); Hemoglobin 9.6 GM/DL (12.0-16.0); Immature Granulocytes % 0.3 %; Immature Granulocytes Absolute 0.04 #; Lymphocytes # 3.1 10*3/uL (1.4-4.0); Lymphocytes % 25.5 % (21.3-54.2); Mean Corpuscular HGB Conc 29.3 GM/DL (32-36); Mean Corpuscular Volume 81.4 FL (87-102); Mean Platelet Volume 9.3 FL (9.6-12.0); Neutrophils % 62.7 % (38.7-73.9); Platelet Count 358 T/CUMM (130-400); Red Blood Count 4.03 MC/CUMM (3.8-5.5); Red Cell Distribution Width 17.5 % (9.3-17.3)
[2019-07-21] MEDS: PIPERACILLIN/TAZOBACTAM 3,375 MG in SODIUM CHLORIDE 0.9% 100 ML IV SCH ×3 (02:41→17:29)
[2019-07-21] MEDS ORDERED: POTASSIUM CHLORIDE 20 MEQ TABLET PO PRN (09:29)
[2019-07-21] MEDS: CLINDAMYCIN INJ 600 MG in PREMIX 1 EACH IV SCH ×2 (09:33→16:16)
[2019-07-21] MEDS: PANTOPRAZOLE 40 MG TABLET PO SCH (09:33)
[2019-07-21] MEDS ORDERED: ALBUTEROL 2.5 MG/3 ML NEB RESP TX PRN (14:45)
[2019-07-21] MEDS ORDERED: fentaNYL 25 MCG/HR PATCH TRANSDERM PRN (14:45)
[2019-07-21] MEDS: oxyCODONE/ACETAMINOPHEN 5-325 MG TABLET PO PRN (17:28)
[2019-07-21] MEDS: ARIPiprazole 5 MG TABLET PO SCH (21:03)
[2019-07-21] MEDS: DULoxetine 30 MG CAPSULE PO SCH (21:03)
[2019-07-21] MEDS: clonazePAM 0.5 MG TABLET PO SCH (21:04)
[2019-07-22] MEDS: CLINDAMYCIN INJ 600 MG in PREMIX 1 EACH IV SCH ×2 (00:25→08:52)
[2019-07-22] MEDS: DEXTROSE 5% NACL 0.45% 1,000 ML IV SCH ×3 (01:27→21:29)
[2019-07-22] MEDS: PIPERACILLIN/TAZOBACTAM 3,375 MG in SODIUM CHLORIDE 0.9% 100 ML IV SCH ×2 (01:29→11:13)
[2019-07-22] MEDS: oxyCODONE/ACETAMINOPHEN 5-325 MG TABLET PO PRN ×2 (01:36→09:32)
[2019-07-22] MEDS: PANTOPRAZOLE 40 MG TABLET PO SCH (08:52)
[2019-07-22] MEDS ORDERED: LIDOCAINE 1%/EPI INJ 20 ML VIAL ONE (10:57)
[2019-07-22] MEDS ORDERED: BUPIVACAINE 0.25% /EPI 10 ML VIAL ONE (10:57)
[2019-07-22] MEDS ORDERED: SEVOFLURANE 1 UNIT/15 MINUTE INH ONE (12:20)
[2019-07-22] MEDS ORDERED: propofoL 200 MG/20 ML VIAL IV ONE (12:20)
[2019-07-22] MEDS ORDERED: KETOROLAC 30 MG/1 ML VIAL ONE (12:21)
[2019-07-22] MEDS ORDERED: PROMETHAZINE 25 MG/1 ML VIAL ONE (12:21)
[2019-07-22] MEDS ORDERED: ONDANSETRON 4 MG/2 ML VIAL ONE (12:21)
[2019-07-22] MEDS ORDERED: DEXMEDETOMIDINE 200 MCG/2 ML VIAL ONE (12:21)
[2019-07-22] MEDS ORDERED: KETAMINE 500 MG/10 ML VIAL ONE (12:21)
[2019-07-22] MEDS ORDERED: HYDROmorphone 2 MG/1 ML VIAL ONE (12:53)
[2019-07-22] MEDS: HYDROmorphone 2 MG/1 ML VIAL IV PRN ×5 (12:55→21:26)
[2019-07-22] MEDS ORDERED: FLUCONAZOLE INJ 150 MG in IV BAG 1 EACH IV ONE (15:00)
[2019-07-22] MEDS: ERTAPENEM 1,000 MG in SODIUM CHLORIDE 0.9% 100 ML IV SCH (15:30)
[2019-07-22] MEDS: DULoxetine 30 MG CAPSULE PO SCH (21:25)
[2019-07-22] MEDS: clonazePAM 0.5 MG TABLET PO SCH (21:26)
[2019-07-22] MEDS: ARIPiprazole 5 MG TABLET PO SCH (21:26)
[2019-07-23] MEDS: DEXTROSE 5% NACL 0.45% 1,000 ML IV SCH ×4 (01:22→20:15)
[2019-07-23] MEDS: HYDROmorphone 2 MG/1 ML VIAL IV PRN ×5 (01:27→21:47)
[2019-07-23] MEDS: oxyCODONE/ACETAMINOPHEN 5-325 MG TABLET PO PRN ×2 (03:14→15:48)
[2019-07-23] MEDS ORDERED: DIAZEPAM 5 MG TABLET PO ONE (08:21)
[2019-07-23] MEDS: PANTOPRAZOLE 40 MG TABLET PO SCH (10:31)
[2019-07-23] MEDS: MORPHINE ER 15 MG TABLET PO SCH ×2 (13:27→23:57)
[2019-07-23] MEDS: MORPHINE ER 30 MG TABLET PO SCH ×2 (13:27→23:57)
[2019-07-23] MEDS: ERTAPENEM 1,000 MG in SODIUM CHLORIDE 0.9% 100 ML IV SCH (13:33)
[2019-07-23] MEDS: DULoxetine 30 MG CAPSULE PO SCH (21:45)
[2019-07-23] MEDS: ARIPiprazole 5 MG TABLET PO SCH (21:45)
[2019-07-23] MEDS: clonazePAM 0.5 MG TABLET PO SCH (21:46)
[2019-07-24] MEDS: HYDROmorphone 2 MG/1 ML VIAL IV PRN ×7 (02:23→20:57)
[2019-07-24] MEDS: oxyCODONE/ACETAMINOPHEN 5-325 MG TABLET PO PRN ×2 (04:13→17:16)
[2019-07-24] MEDS: DEXTROSE 5% NACL 0.45% 1,000 ML IV SCH ×2 (05:44→09:15)
[2019-07-24] MEDS ORDERED: LIDOCAINE 1% 20 ML VIAL ONE (07:05)
[2019-07-24] MEDS ORDERED: LIDOCAINE 1%/EPI INJ 20 ML VIAL ONE (07:05)
[2019-07-24] MEDS ORDERED: propofoL 200 MG/20 ML VIAL IV ONE (08:24)
[2019-07-24] MEDS ORDERED: SEVOFLURANE 1 UNIT/15 MINUTE INH ONE (08:24)
[2019-07-24] MEDS ORDERED: MIDAZOLAM 2 MG/2 ML VIAL ONE (08:25)
[2019-07-24] MEDS ORDERED: fentaNYL 100 MCG/2 ML VIAL ONE (08:25)
[2019-07-24] MEDS ORDERED: KETAMINE 500 MG/10 ML VIAL ONE (08:25)
[2019-07-24] MEDS ORDERED: DEXMEDETOMIDINE 200 MCG/2 ML VIAL ONE (08:26)
[2019-07-24] MEDS ORDERED: HYDROmorphone 2 MG/1 ML VIAL IV PRN (08:28)
[2019-07-24] MEDS ORDERED: ONDANSETRON 4 MG/2 ML VIAL IV PRN (08:28)
[2019-07-24] MEDS: PANTOPRAZOLE 40 MG TABLET PO SCH (12:12)
[2019-07-24] MEDS: MORPHINE ER 15 MG TABLET PO SCH (13:30)
[2019-07-24] MEDS: MORPHINE ER 30 MG TABLET PO SCH (13:31)
[2019-07-24] MEDS: ERTAPENEM 1,000 MG in SODIUM CHLORIDE 0.9% 100 ML IV SCH (13:36)
[2019-07-24] MEDS: GABAPENTIN 300 MG CAPSULE PO SCH ×2 (14:44→20:58)
[2019-07-24] MEDS: DULoxetine 30 MG CAPSULE PO SCH (20:57)
[2019-07-24] MEDS: ARIPiprazole 5 MG TABLET PO SCH (20:57)
[2019-07-24] MEDS: clonazePAM 0.5 MG TABLET PO SCH (20:57)
[2019-07-25] MEDS: MORPHINE ER 30 MG TABLET PO SCH ×3 (01:12→21:43)
[2019-07-25] MEDS: MORPHINE ER 15 MG TABLET PO SCH (01:12)
[2019-07-25] MEDS: HYDROmorphone 2 MG/1 ML VIAL IV PRN ×8 (02:14→20:19)
[2019-07-25 06:28] LABS: Basophils % 0.3 % (0.0-0.8); Eosinophils # 0.7 10*3/uL (0.0-0.87); Eosinophils % 5.5 % (0.00-10.9); Hematocrit 29.1 VOL% (35.7-47.0); Hemoglobin 8.5 GM/DL (12.0-16.0); Immature Granulocytes % 0.5 %; Immature Granulocytes Absolute 0.06 #; Lymphocytes % 24.8 % (21.3-54.2); Mean Corpuscular HGB Conc 29.2 GM/DL (32-36); Mean Corpuscular Volume 81.3 FL (87-102); Mean Platelet Volume 9.7 FL (9.6-12.0); Monocytes % 7.9 % (1.7-12.7); NRBC # 0.02 10*3/uL; Platelet Count 333 T/CUMM (130-400); Red Blood Count 3.58 MC/CUMM (3.8-5.5); Red Cell Distribution Width 16.9 % (9.3-17.3)
[2019-07-25 06:50] LABS: Calcium 8.6 MG/DL (8.5-10.1); Osmolality,Calculated 267.1 MOS/KG (273-304)
[2019-07-25 07:35] LABS: Eosinophils 7 % (0-10); Hypochromasia 1+; Lymphocytes 31 % (20-55); Microcytosis Slight; Ovalocytes Slight; Platelet Estimate Adequate; Segmented Neutrophils 54 % (50-85); Total Cells Counted 100
[2019-07-25] MEDS: GABAPENTIN 300 MG CAPSULE PO SCH ×3 (08:55→21:43)
[2019-07-25] MEDS: PANTOPRAZOLE 40 MG TABLET PO SCH (08:55)
[2019-07-25] MEDS: POTASSIUM CHLORIDE RIDER 10 MEQ in PREMIX 1 EACH IV PRN ×4 (08:56→12:03)
[2019-07-25] MEDS: oxyCODONE/ACETAMINOPHEN 5-325 MG TABLET PO PRN (10:06)
[2019-07-25] MEDS: ERTAPENEM 1,000 MG in SODIUM CHLORIDE 0.9% 100 ML IV SCH (13:01)
[2019-07-25] MEDS: DULoxetine 30 MG CAPSULE PO SCH (21:43)
[2019-07-25] MEDS: clonazePAM 0.5 MG TABLET PO SCH (21:43)
[2019-07-25] MEDS: ARIPiprazole 5 MG TABLET PO SCH (21:43)
[2019-07-26] MEDS: HYDROmorphone 2 MG/1 ML VIAL IV PRN ×6 (01:25→16:55)
[2019-07-26] MEDS ORDERED: BUPIVACAINE 0.25% /EPI 10 ML VIAL ONE (06:31)
[2019-07-26] MEDS ORDERED: LIDOCAINE 1%/EPI INJ 20 ML VIAL ONE (06:31)
[2019-07-26] MEDS ORDERED: ALBUTEROL/IPRATROPIUM 3 ML NEB RESP TX ONE ×2 (08:00)
[2019-07-26] MEDS ORDERED: ONDANSETRON 4 MG/2 ML VIAL ONE (08:08)
[2019-07-26] MEDS ORDERED: SEVOFLURANE 1 UNIT/15 MINUTE INH ONE (08:08)
[2019-07-26] MEDS ORDERED: ACETAMINOPHEN 1,000 MG/100 ML VIAL IV ONE (08:08)
[2019-07-26] MEDS ORDERED: fentaNYL 250 MCG/5 ML VIAL ONE (08:08)
[2019-07-26] MEDS ORDERED: propofoL 200 MG/20 ML VIAL IV ONE (08:08)
[2019-07-26] MEDS ORDERED: LIDOCAINE 2% 5 ML VIAL ONE (08:08)
[2019-07-26] MEDS ORDERED: MIDAZOLAM 2 MG/2 ML VIAL ONE (08:09)
[2019-07-26] MEDS: GABAPENTIN 300 MG CAPSULE PO SCH ×2 (09:14→17:36)
[2019-07-26] MEDS: PANTOPRAZOLE 40 MG TABLET PO SCH (09:14)
[2019-07-26] MEDS: MORPHINE ER 30 MG TABLET PO SCH (09:14)
[2019-07-26] MEDS: ERTAPENEM 1,000 MG in SODIUM CHLORIDE 0.9% 100 ML IV SCH (14:30)
[2019-07-26 16:02] VITALS: BP 121/62
[2019-07-26] MEDS: oxyCODONE/ACETAMINOPHEN 5-325 MG TABLET PO PRN (16:02)
[2019-07-26] MEDS ORDERED: SODIUM HYPOCHLORITE 0.25% IRRIG 473 ML BOTTLE TOP SCH (18:00)
== END 2019-07-26 18:30 | disposition home health service (06) | DRG 584 ==
LOC: N.ED 23:49 → N.EDINP 07-21 00:29 → N.3E 07-21 01:40
PROVIDERS: ADMIT Surgery; ATTEND Surgery

== ENCOUNTER 2019-07-29 14:44 | Inpatient (IN) ==
[~2019-07-29 14:44] MED LIST changes: +ACETAMINOPHEN 325 MG TABLET PO PRN; +ALBUTEROL 2.5 MG/3 ML NEB RESP TX PRN; +ALBUTEROL/IPRATROPIUM 3 ML NEB RESP TX PRN; +BISACODYL 5 MG TABLET PO PRN; +ERTAPENEM 1,000 MG VIAL IV SCH; +HYDROmorphone 2 MG/1 ML VIAL IV PRN; -LACTATED RINGERS 1,000 ML IV SCH; +ONDANSETRON 4 MG/2 ML VIAL IV PRN; +oxyCODONE/ACETAMINOPHEN 5-325 MG TABLET PO PRN
[2019-07-29] MEDS ORDERED: ERTAPENEM 1,000 MG in SODIUM CHLORIDE 0.9% 100 ML IV SCH (21:00)
[2019-07-29] MEDS: ARIPiprazole 5 MG TABLET PO SCH ×3 (21:03→22:22)
[2019-07-29] MEDS: traZODone 50 MG TABLET PO SCH ×4 (21:03→22:22)
[2019-07-29] MEDS: DULoxetine 30 MG CAPSULE PO SCH ×3 (21:03→22:21)
[2019-07-29] MEDS: MORPHINE ER 30 MG TABLET PO SCH ×4 (21:04→22:21)
[2019-07-29] MEDS: clonazePAM 0.5 MG TABLET PO SCH ×3 (21:04→22:38)
[2019-07-29] MEDS: GABAPENTIN 300 MG CAPSULE PO SCH ×3 (21:05→22:20)
[2019-07-29] MEDS: PANTOPRAZOLE 40 MG TABLET PO SCH ×2 (21:05→21:07)
[2019-07-29] MEDS: oxyCODONE/ACETAMINOPHEN 5-325 MG TABLET PO PRN (23:59)
[2019-07-30 06:56] LABS: Basophils % 0.4 % (0.0-0.8); Eosinophils # 0.6 10*3/uL (0.0-0.87); Eosinophils % 5.6 % (0.00-10.9); Hematocrit 32.2 VOL% (35.7-47.0); Hemoglobin 9.4 GM/DL (12.0-16.0); Immature Granulocytes % 1.9 %; Immature Granulocytes Absolute 0.21 #; Lymphocytes # 2.4 10*3/uL (1.4-4.0); Mean Corpuscular HGB Conc 29.2 GM/DL (32-36); Mean Corpuscular Volume 79.5 FL (87-102); Mean Platelet Volume 10.1 FL (9.6-12.0); Monocytes % 5.9 % (1.7-12.7); NRBC # 0.08 10*3/uL; Neutrophils % 64.2 % (38.7-73.9); Platelet Count 458 T/CUMM (130-400); Red Blood Count 4.05 MC/CUMM (3.8-5.5); White Blood Count 10.9 T/CUMM (4-12)
[2019-07-30 07:12] LABS: Hypochromasia 2+; Platelet Estimate Increased
[2019-07-30 07:13] LABS: Microcytosis Slight
[2019-07-30] MEDS: oxyCODONE/ACETAMINOPHEN 5-325 MG TABLET PO PRN (08:22)
[2019-07-30] MEDS: MORPHINE ER 30 MG TABLET PO SCH ×2 (08:53→20:34)
[2019-07-30] MEDS: PANTOPRAZOLE 40 MG TABLET PO SCH (08:53)
[2019-07-30] MEDS: GABAPENTIN 300 MG CAPSULE PO SCH ×3 (08:53→20:32)
[2019-07-30 09:24] LABS: Calcium 8.7 MG/DL (8.5-10.1); Osmolality,Calculated 274.5 MOS/KG (273-304)
[2019-07-30] MEDS ORDERED: ONDANSETRON 4 MG/2 ML VIAL IV PRN (10:49)
[2019-07-30] MEDS ORDERED: HYDROmorphone 2 MG/1 ML VIAL ONE (10:58)
[2019-07-30] MEDS ORDERED: ONDANSETRON 4 MG/2 ML VIAL ONE ×2 (10:58→11:38)
[2019-07-30] MEDS: HYDROmorphone 2 MG/1 ML VIAL IV PRN ×8 (11:01→23:42)
[2019-07-30] MEDS ORDERED: MEPERIDINE 25 MG/1 ML VIAL ONE (11:35)
[2019-07-30] MEDS ORDERED: MEPERIDINE 25 MG/1 ML VIAL IV PRN (11:36)
[2019-07-30] MEDS ORDERED: SEVOFLURANE 1 UNIT/15 MINUTE INH ONE (11:37)
[2019-07-30] MEDS ORDERED: LIDOCAINE 2% 5 ML VIAL ONE (11:37)
[2019-07-30] MEDS ORDERED: propofoL 200 MG/20 ML VIAL IV ONE (11:37)
[2019-07-30] MEDS ORDERED: MIDAZOLAM 2 MG/2 ML VIAL ONE (11:38)
[2019-07-30] MEDS ORDERED: SUCCINYLCHOLINE 200 MG/10 ML VIAL ONE (11:38)
[2019-07-30] MEDS ORDERED: fentaNYL 100 MCG/2 ML VIAL ONE (11:38)
[2019-07-30] MEDS: oxyCODONE/ACETAMINOPHEN 5-325 MG TABLET PO SCH ×3 (13:08→20:35)
[2019-07-30] MEDS: ERTAPENEM 1,000 MG in SODIUM CHLORIDE 0.9% 100 ML IV SCH (14:05)
[2019-07-30] MEDS ORDERED: MAGNESIUM HYDROXIDE SUSP 30 ML UDCUP PO PRN (19:43)
[2019-07-30] MEDS: ARIPiprazole 5 MG TABLET PO SCH (20:32)
[2019-07-30] MEDS: DULoxetine 30 MG CAPSULE PO SCH (20:32)
[2019-07-30] MEDS: clonazePAM 0.5 MG TABLET PO SCH (20:32)
[2019-07-30] MEDS: traZODone 50 MG TABLET PO SCH (20:34)
[2019-07-31] MEDS: oxyCODONE/ACETAMINOPHEN 5-325 MG TABLET PO SCH ×4 (00:56→14:28)
[2019-07-31] MEDS: HYDROmorphone 2 MG/1 ML VIAL IV PRN ×3 (04:16→09:45)
[2019-07-31] MEDS: PANTOPRAZOLE 40 MG TABLET PO SCH (08:22)
[2019-07-31] MEDS: MORPHINE ER 30 MG TABLET PO SCH (08:22)
[2019-07-31] MEDS: GABAPENTIN 300 MG CAPSULE PO SCH (08:22)
[2019-07-31 11:49] VITALS: BP 114/55
[2019-07-31] MEDS ORDERED: MIDAZOLAM 2 MG/2 ML VIAL ONE (12:53)
[2019-07-31] MEDS: ERTAPENEM 1,000 MG in SODIUM CHLORIDE 0.9% 100 ML IV SCH (14:28)
== END 2019-07-31 14:27 | disposition home health service (06) | DRG 584 ==
LOC: N.3E 19:58
PROVIDERS: ADMIT Surgery; ATTEND Surgery

== ENCOUNTER 2019-09-03 06:25 | Inpatient (IN) ==
[2019-08-28 17:25] LABS: Basophils # 0.1 10*3/uL (0.0-0.2); Basophils % 0.8 % (0.0-0.8); Eosinophils # 0.8 10*3/uL (0.0-0.87); Eosinophils % 6.1 % (0.00-10.9); Hematocrit 30.4 VOL% (35.7-47.0); Hemoglobin 8.4 GM/DL (12.0-16.0); Immature Granulocytes % 0.6 %; Immature Granulocytes Absolute 0.07 #; Lymphocytes # 3.5 10*3/uL (1.4-4.0); Mean Corpuscular HGB Conc 27.6 GM/DL (32-36); Mean Platelet Volume 10.7 FL (9.6-12.0); Monocytes % 6.1 % (1.7-12.7); NRBC # 0.05 10*3/uL; Neutrophils % 58.4 % (38.7-73.9); Platelet Count 451 T/CUMM (130-400); Red Blood Count 3.95 MC/CUMM (3.8-5.5); Red Cell Distribution Width 17.2 % (9.3-17.3); White Blood Count 12.4 T/CUMM (4-12)
[2019-08-28 17:53] LABS: Anisocytosis 1+; Hypochromasia 2+
[2019-08-28 17:54] LABS: Microcytosis 2+; Platelet Estimate Adequate; Polychromasia Few
[~2019-09-03 06:25] MED LIST changes: -ACETAMINOPHEN 325 MG TABLET PO PRN; -ALBUTEROL 2.5 MG/3 ML NEB RESP TX PRN; -ALBUTEROL/IPRATROPIUM 3 ML NEB RESP TX PRN; -BISACODYL 5 MG TABLET PO PRN; -ERTAPENEM 1,000 MG VIAL IV SCH; -HYDROmorphone 2 MG/1 ML VIAL IV PRN; +LACTATED RINGERS 1,000 ML IV SCH; -ONDANSETRON 4 MG/2 ML VIAL IV PRN; +ceFAZolin 1,000 MG VIAL ONE; +ceFAZolin 1,000 MG in SYRINGE 1 EACH IV ONE; -oxyCODONE/ACETAMINOPHEN 5-325 MG TABLET PO PRN
[2019-09-03] MEDS ORDERED: DIAZEPAM 5 MG TABLET PO ONE (06:44)
[2019-09-03] MEDS ORDERED: SCOPOLAMINE 1.5 MG PATCH TRANSDERM ONE ×2 (06:49→07:52)
[2019-09-03] MEDS ORDERED: DIAZEPAM 5 MG TABLET ONE (07:52)
[2019-09-03] MEDS ORDERED: LIDOCAINE 1% 5 ML VIAL ONE (10:55)
[2019-09-03] MEDS ORDERED: BUPIVACAINE MPF 0.25% 30 ML VIAL ONE (10:56)
[2019-09-03] MEDS ORDERED: DEXAMETHASONE 4 MG/1 ML VIAL ONE ×2 (10:56→13:56)
[2019-09-03] MEDS ORDERED: DEXMEDETOMIDINE 200 MCG/2 ML VIAL ONE (11:58)
[2019-09-03] MEDS ORDERED: LIDOCAINE 2% 5 ML VIAL ONE (13:55)
[2019-09-03] MEDS ORDERED: propofoL 200 MG/20 ML VIAL IV ONE (13:55)
[2019-09-03] MEDS ORDERED: SEVOFLURANE 1 UNIT/15 MINUTE INH ONE (13:55)
[2019-09-03] MEDS ORDERED: SUCCINYLCHOLINE 200 MG/10 ML VIAL ONE (13:56)
[2019-09-03] MEDS ORDERED: ROCURONIUM 100 MG/10 ML VIAL IV ONE (13:56)
[2019-09-03] MEDS ORDERED: LACTATED RINGERS 1,000 ML IV ONE (13:56)
[2019-09-03] MEDS ORDERED: fentaNYL 100 MCG/2 ML VIAL ONE ×2 (13:56→14:01)
[2019-09-03] MEDS ORDERED: ONDANSETRON 4 MG/2 ML VIAL ONE (13:56)
[2019-09-03] MEDS ORDERED: ONDANSETRON 4 MG/2 ML VIAL IV PRN ×2 (13:57→14:50)
[2019-09-03] MEDS: HYDROmorphone 2 MG/1 ML VIAL IV PRN ×4 (14:00→14:15)
[2019-09-03] MEDS ORDERED: MIDAZOLAM 2 MG/2 ML VIAL ONE (14:01)
[2019-09-03] MEDS ORDERED: ALBUTEROL 2.5 MG/3 ML NEB RESP TX PRN (14:50)
[2019-09-03] MEDS ORDERED: HYDROmorphone 2 MG/1 ML VIAL IV PRN (14:50)
[2019-09-03] MEDS ORDERED: NYSTATIN POWDER 15 GM BOTTLE TOP PRN (14:50)
[2019-09-03] MEDS ORDERED: PROMETHAZINE 25 MG/1 ML VIAL IM PRN (14:50)
[2019-09-03] MEDS ORDERED: ACETAMINOPHEN 325 MG TABLET PO PRN (14:50)
[2019-09-03] MEDS: LACTATED RINGERS 1,000 ML IV SCH ×2 (15:00→21:39)
[2019-09-03] MEDS: GABAPENTIN 300 MG CAPSULE PO SCH ×2 (15:37→21:37)
[2019-09-03] MEDS: MORPHINE ER 30 MG TABLET PO SCH ×2 (15:37→21:37)
[2019-09-03] MEDS: KETOROLAC 15 MG/1 ML VIAL IV SCH ×2 (15:38→21:36)
[2019-09-03 15:39] LABS: Calcium 8.4 MG/DL (8.5-10.1); Osmolality,Calculated 273.7 MOS/KG (273-304)
[2019-09-03 15:45] LABS: Basophils # 0.1 10*3/uL (0.0-0.2); Basophils % 0.6 % (0.0-0.8); Eosinophils # 0.3 10*3/uL (0.0-0.87); Eosinophils % 2.2 % (0.00-10.9); Immature Granulocytes % 0.6 %; Immature Granulocytes Absolute 0.08 #; Lymphocytes # 1.5 10*3/uL (1.4-4.0); Lymphocytes % 10.6 % (21.3-54.2); Mean Corpuscular HGB Conc 27.1 GM/DL (32-36); Mean Corpuscular Volume 76.5 FL (87-102); Mean Platelet Volume 10.3 FL (9.6-12.0); Monocytes % 1.3 % (1.7-12.7); Neutrophils % 84.7 % (38.7-73.9); Platelet Count 436 T/CUMM (130-400); Red Blood Count 3.62 MC/CUMM (3.8-5.5); Red Cell Distribution Width 17.6 % (9.3-17.3); White Blood Count 14.1 T/CUMM (4-12)
[2019-09-03 15:48] LABS: Hematocrit 27.7 VOL% (35.7-47.0); Hemoglobin 7.5 GM/DL (12.0-16.0)
[2019-09-03] MEDS ORDERED: NALOXONE 0.4 MG/ML VIAL IV PRN (17:16)
[2019-09-03] MEDS: HYDROmorphone PCA 30 MG/30 ML SYRINGE IV SCH (17:59)
[2019-09-03] MEDS: clonazePAM 0.5 MG TABLET PO SCH (21:37)
[2019-09-03] MEDS: DULoxetine 30 MG CAPSULE PO SCH (21:37)
[2019-09-03] MEDS: ARIPiprazole 5 MG TABLET PO SCH (21:37)
[2019-09-04] MEDS: LACTATED RINGERS 1,000 ML IV SCH ×3 (04:00→22:03)
[2019-09-04] MEDS: KETOROLAC 15 MG/1 ML VIAL IV SCH ×4 (04:02→20:31)
[2019-09-04 06:48] LABS: Calcium 8.4 MG/DL (8.5-10.1); Osmolality,Calculated 279.5 MOS/KG (273-304)
[2019-09-04 07:10] LABS: Basophils % 0.2 % (0.0-0.8); Eosinophils % 0.1 % (0.00-10.9); Hematocrit 25.4 VOL% (35.7-47.0); Immature Granulocytes % 0.6 %; Immature Granulocytes Absolute 0.08 #; Lymphocytes # 1.9 10*3/uL (1.4-4.0); Lymphocytes % 13.3 % (21.3-54.2); Mean Corpuscular HGB Conc 27.6 GM/DL (32-36); Mean Platelet Volume 10.5 FL (9.6-12.0); Monocytes % 6.8 % (1.7-12.7); NRBC # 0.03 10*3/uL; Platelet Count 455 T/CUMM (130-400); Red Blood Count 3.34 MC/CUMM (3.8-5.5); Red Cell Distribution Width 17.4 % (9.3-17.3); White Blood Count 14.3 T/CUMM (4-12)
[2019-09-04 07:12] LABS: Anisocytosis 2+; Platelet Estimate Normal
[2019-09-04 07:13] LABS: Polychromasia Slight
[2019-09-04] MEDS: GABAPENTIN 300 MG CAPSULE PO SCH ×3 (09:18→20:30)
[2019-09-04] MEDS: ENOXAPARIN 40 MG/0.4 ML SYRINGE SUBCUT SCH (09:18)
[2019-09-04] MEDS: MORPHINE ER 30 MG TABLET PO SCH ×2 (09:55→20:30)
[2019-09-04] MEDS ORDERED: ERTAPENEM 1,000 MG VIAL IV SCH (12:00)
[2019-09-04 12:31] LABS: Hematocrit 24.3 VOL% (35.7-47.0); Hemoglobin 6.5 GM/DL (12.0-16.0)
[2019-09-04] MEDS: ERTAPENEM 1,000 MG in SODIUM CHLORIDE 0.9% 100 ML IV SCH (12:39)
[2019-09-04] MEDS ORDERED: SODIUM CHLORIDE 0.9% 1,000 ML IV PRN (13:48)
[2019-09-04] MEDS: FLUCONAZOLE 100 MG TABLET PO SCH (14:39)
[2019-09-04 16:27] LABS: Apearance,Urine CLEAR (Clear); Bilirubin,Urine Negative (Negative); Blood, Urine Negative (Negative); Glucose,Urine (UA) Negative (Negative); Ketones,Urine 5 mg/dL (Negative); Mucus,Urine Occasional /LPF (Occasional); Nitrite,Urine Negative (Negative); Protein,Urine Negative; RBC,Urine 3 /HPF (0-4); Squamous Epithelial Cell,Urine Occasional /HPF (0-10); Urine Color Yellow (Yellow); Urine Urobilinogen < 2.0 EU/DL (0.2-1.0); WBC,Urine 8 /HPF (0-6)
[2019-09-04] MEDS: ARIPiprazole 5 MG TABLET PO SCH (20:30)
[2019-09-04] MEDS: DULoxetine 30 MG CAPSULE PO SCH (20:30)
[2019-09-04] MEDS: clonazePAM 0.5 MG TABLET PO SCH (20:30)
[2019-09-05] MEDS: HYDROmorphone PCA 30 MG/30 ML SYRINGE IV SCH (03:59)
[2019-09-05] MEDS: KETOROLAC 15 MG/1 ML VIAL IV SCH ×2 (04:01→09:46)
[2019-09-05 06:21] LABS: Basophils # 0.1 10*3/uL (0.0-0.2); Basophils % 0.7 % (0.0-0.8); Eosinophils % 9.6 % (0.00-10.9); Hematocrit 27.3 VOL% (35.7-47.0); Hemoglobin 7.5 GM/DL (12.0-16.0); Immature Granulocytes % 0.6 %; Immature Granulocytes Absolute 0.06 #; Lymphocytes % 27.7 % (21.3-54.2); Mean Corpuscular HGB Conc 27.5 GM/DL (32-36); Mean Corpuscular Volume 79.6 FL (87-102); Mean Platelet Volume 10.3 FL (9.6-12.0); Monocytes % 5.7 % (1.7-12.7); NRBC # 0.03 10*3/uL; Neutrophils % 55.7 % (38.7-73.9); Platelet Count 373 T/CUMM (130-400); Red Blood Count 3.43 MC/CUMM (3.8-5.5); Red Cell Distribution Width 18.4 % (9.3-17.3); White Blood Count 10.7 T/CUMM (4-12)
[2019-09-05 06:39] LABS: Hypochromasia 2+; Microcytosis 2+; Polychromasia Slight
[2019-09-05 06:40] LABS: Ovalocytes Few; Platelet Estimate Normal; Tear Drop Cells Few
[2019-09-05] MEDS ORDERED: POLYETHYLENE GLYCOL POWDER 17 GM PACK PO SCH (09:00)
[2019-09-05] MEDS ORDERED: oxyCODONE/ACETAMINOPHEN 5-325 MG TABLET PO PRN (09:31)
[2019-09-05] MEDS: FLUCONAZOLE 100 MG TABLET PO SCH (09:45)
[2019-09-05] MEDS: GABAPENTIN 300 MG CAPSULE PO SCH (09:45)
[2019-09-05] MEDS: ENOXAPARIN 40 MG/0.4 ML SYRINGE SUBCUT SCH (09:45)
[2019-09-05] MEDS: MORPHINE ER 30 MG TABLET PO SCH (09:45)
[2019-09-05] MEDS ORDERED: diphenhydrAMINE CAP 25 MG CAPSULE PO ONE (10:32)
[2019-09-05] MEDS: ERTAPENEM 1,000 MG in SODIUM CHLORIDE 0.9% 100 ML IV SCH (10:44)
[2019-09-05 11:42] VITALS: BP 138/76
== END 2019-09-05 14:35 | disposition home health service (06) | DRG 584 ==
LOC: N.SDSINP 06:25 → N.OR 06:25 → N.SDSINP 06:27 → N.3E 14:21
PROVIDERS: ADMIT Surgery; ATTEND Surgery

== ENCOUNTER 2019-11-23 08:58 | Inpatient (IN) ==
[2019-11-23] MEDS ORDERED: PROMETHAZINE 25 MG/1 ML VIAL IM PRN (11:05)
[2019-11-23] MEDS ORDERED: ACETAMINOPHEN 325 MG TABLET PO PRN (11:05)
[2019-11-23 11:42] LABS: Basophils # 0.1 10*3/uL (0.0-0.2); Basophils % 0.7 % (0.0-0.8); Eosinophils # 0.7 10*3/uL (0.0-0.87); Eosinophils % 8.4 % (0.00-10.9); Hematocrit 35.5 VOL% (35.7-47.0); Immature Granulocytes % 0.5 %; Immature Granulocytes Absolute 0.04 #; Lymphocytes # 2.2 10*3/uL (1.4-4.0); Lymphocytes % 26.5 % (21.3-54.2); Mean Corpuscular HGB Conc 28.5 GM/DL (32-36); Mean Platelet Volume 9.6 FL (9.6-12.0); Neutrophils % 58.9 % (38.7-73.9); Platelet Count 334 T/CUMM (130-400); Red Blood Count 4.61 MC/CUMM (3.8-5.5); Red Cell Distribution Width 18.1 % (9.3-17.3); White Blood Count 8.4 T/CUMM (4-12)
[2019-11-23 11:43] LABS: Hemoglobin 10.1 GM/DL (12.0-16.0)
[2019-11-23 11:46] LABS: Eosinophils 7 % (0-10); Lymphocytes 21 % (20-55); Segmented Neutrophils 65 % (50-85); Total Cells Counted 100
[2019-11-23 11:47] LABS: Hypochromasia 1+; Microcytosis Slight; Ovalocytes Slight; Platelet Estimate Adequate
[2019-11-23 11:49] LABS: Calcium 8.5 MG/DL (8.5-10.1); Osmolality,Calculated 275.1 MOS/KG (273-304)
[2019-11-23] MEDS: HYDROmorphone 2 MG/1 ML VIAL IV PRN ×3 (13:39→22:59)
[2019-11-23] MEDS: LACTATED RINGERS 1,000 ML IV SCH ×2 (13:39→22:59)
[2019-11-23] MEDS: ERTAPENEM 1,000 MG in SODIUM CHLORIDE 0.9% 100 ML IV SCH (14:56)
[2019-11-23] MEDS: METHOCARBAMOL 750 MG TABLET PO SCH (22:00)
[2019-11-23] MEDS: GABAPENTIN 400 MG CAPSULE PO SCH (22:00)
[2019-11-23] MEDS: ARIPiprazole 5 MG TABLET PO SCH (22:00)
[2019-11-23] MEDS: DICLOFENAC SODIUM 75 MG TABLET PO SCH (22:01)
[2019-11-23] MEDS: clonazePAM 0.5 MG TABLET PO SCH (22:01)
[2019-11-23] MEDS: DULoxetine 30 MG CAPSULE PO SCH (22:04)
[2019-11-24] MEDS: HYDROmorphone 2 MG/1 ML VIAL IV PRN ×4 (04:41→20:37)
[2019-11-24] MEDS: ENOXAPARIN 40 MG/0.4 ML SYRINGE SUBCUT SCH (05:24)
[2019-11-24 05:40] LABS: Calcium 8.6 MG/DL (8.5-10.1); Osmolality,Calculated 268.1 MOS/KG (273-304)
[2019-11-24 05:44] LABS: Basophils # 0.1 10*3/uL (0.0-0.2); Basophils % 0.8 % (0.0-0.8); Eosinophils # 0.6 10*3/uL (0.0-0.87); Eosinophils % 7.9 % (0.00-10.9); Hematocrit 33.3 VOL% (35.7-47.0); Immature Granulocytes % 0.4 %; Immature Granulocytes Absolute 0.03 #; Lymphocytes # 2.2 10*3/uL (1.4-4.0); Lymphocytes % 28.3 % (21.3-54.2); Mean Corpuscular HGB Conc 28.5 GM/DL (32-36); Mean Corpuscular Volume 76.4 FL (87-102); Mean Platelet Volume 9.7 FL (9.6-12.0); Monocytes % 5.7 % (1.7-12.7); Neutrophils % 56.9 % (38.7-73.9); Platelet Count 303 T/CUMM (130-400); Red Blood Count 4.36 MC/CUMM (3.8-5.5); Red Cell Distribution Width 17.9 % (9.3-17.3); White Blood Count 7.7 T/CUMM (4-12)
[2019-11-24 05:46] LABS: Hemoglobin 9.5 GM/DL (12.0-16.0)
[2019-11-24 05:52] LABS: Band Neutrophils 1 % (0-10); Eosinophils 6 % (0-10); Lymphocytes 18 % (20-55); Platelet Estimate Normal; Segmented Neutrophils 73 % (50-85); Total Cells Counted 100
[2019-11-24 05:53] LABS: Hypochromasia Slight; Microcytosis 1+; Ovalocytes Few
[2019-11-24] MEDS: LACTATED RINGERS 1,000 ML IV SCH ×2 (06:54→15:30)
[2019-11-24] MEDS: DICLOFENAC SODIUM 75 MG TABLET PO SCH ×2 (08:13→20:39)
[2019-11-24] MEDS: GABAPENTIN 400 MG CAPSULE PO SCH ×3 (08:13→20:39)
[2019-11-24] MEDS: METHOCARBAMOL 750 MG TABLET PO SCH ×3 (08:13→20:39)
[2019-11-24] MEDS: PANTOPRAZOLE 40 MG TABLET PO SCH (08:13)
[2019-11-24] MEDS: ERTAPENEM 1,000 MG in SODIUM CHLORIDE 0.9% 100 ML IV SCH (14:08)
[2019-11-24] MEDS: clonazePAM 0.5 MG TABLET PO SCH (20:39)
[2019-11-24] MEDS: ARIPiprazole 5 MG TABLET PO SCH (20:39)
[2019-11-24] MEDS: DULoxetine 30 MG CAPSULE PO SCH (21:27)
[2019-11-25] MEDS: HYDROmorphone 2 MG/1 ML VIAL IV PRN ×4 (04:18→20:53)
[2019-11-25] MEDS: LACTATED RINGERS 1,000 ML IV SCH ×2 (04:19)
[2019-11-25] MEDS: ENOXAPARIN 40 MG/0.4 ML SYRINGE SUBCUT SCH (05:18)
[2019-11-25] MEDS: GABAPENTIN 400 MG CAPSULE PO SCH ×3 (09:12→20:56)
[2019-11-25] MEDS: PANTOPRAZOLE 40 MG TABLET PO SCH (09:13)
[2019-11-25] MEDS: METHOCARBAMOL 750 MG TABLET PO SCH ×3 (09:13→20:58)
[2019-11-25] MEDS: DICLOFENAC SODIUM 75 MG TABLET PO SCH ×2 (09:13→22:54)
[2019-11-25] MEDS: ONDANSETRON 4 MG/2 ML VIAL IV PRN (09:15)
[2019-11-25] MEDS: ERTAPENEM 1,000 MG in SODIUM CHLORIDE 0.9% 100 ML IV SCH (13:37)
[2019-11-25] MEDS: clonazePAM 0.5 MG TABLET PO SCH (20:56)
[2019-11-25] MEDS: ARIPiprazole 5 MG TABLET PO SCH (20:56)
[2019-11-25] MEDS: DULoxetine 30 MG CAPSULE PO SCH (20:58)
[2019-11-26] MEDS: HYDROmorphone 2 MG/1 ML VIAL IV PRN ×5 (01:32→21:31)
[2019-11-26] MEDS: ENOXAPARIN 40 MG/0.4 ML SYRINGE SUBCUT SCH (05:00)
[2019-11-26] MEDS: PANTOPRAZOLE 40 MG TABLET PO SCH (08:40)
[2019-11-26] MEDS: DICLOFENAC SODIUM 75 MG TABLET PO SCH ×2 (08:40→21:30)
[2019-11-26] MEDS: GABAPENTIN 400 MG CAPSULE PO SCH ×3 (08:40→21:30)
[2019-11-26] MEDS: METHOCARBAMOL 750 MG TABLET PO SCH ×3 (08:41→21:30)
[2019-11-26] MEDS: ERTAPENEM 1,000 MG in SODIUM CHLORIDE 0.9% 100 ML IV SCH (10:27)
[2019-11-26] MEDS: clonazePAM 0.5 MG TABLET PO SCH (21:30)
[2019-11-26] MEDS: ARIPiprazole 5 MG TABLET PO SCH (21:30)
[2019-11-26] MEDS: DULoxetine 30 MG CAPSULE PO SCH (21:35)
[2019-11-27] MEDS: HYDROmorphone 2 MG/1 ML VIAL IV PRN ×5 (03:56→21:24)
[2019-11-27] MEDS: ENOXAPARIN 40 MG/0.4 ML SYRINGE SUBCUT SCH (06:00)
[2019-11-27] MEDS: PANTOPRAZOLE 40 MG TABLET PO SCH (08:38)
[2019-11-27] MEDS: DICLOFENAC SODIUM 75 MG TABLET PO SCH ×2 (08:38→21:24)
[2019-11-27] MEDS: METHOCARBAMOL 750 MG TABLET PO SCH ×3 (08:39→21:23)
[2019-11-27] MEDS: GABAPENTIN 400 MG CAPSULE PO SCH ×3 (08:39→21:22)
[2019-11-27] MEDS: ERTAPENEM 1,000 MG in SODIUM CHLORIDE 0.9% 100 ML IV SCH (09:47)
[2019-11-27] MEDS: ONDANSETRON 4 MG/2 ML VIAL IV PRN (17:31)
[2019-11-27] MEDS: clonazePAM 0.5 MG TABLET PO SCH (21:23)
[2019-11-27] MEDS: DULoxetine 30 MG CAPSULE PO SCH (21:23)
[2019-11-27] MEDS: ARIPiprazole 5 MG TABLET PO SCH (21:23)
[2019-11-28] MEDS: HYDROmorphone 2 MG/1 ML VIAL IV PRN ×7 (03:53→23:15)
[2019-11-28 06:23] LABS: Basophils # 0.1 10*3/uL (0.0-0.2); Basophils % 0.8 % (0.0-0.8); Eosinophils # 0.8 10*3/uL (0.0-0.87); Hematocrit 35.1 VOL% (35.7-47.0); Immature Granulocytes % 0.7 %; Immature Granulocytes Absolute 0.07 #; Lymphocytes # 3.1 10*3/uL (1.4-4.0); Lymphocytes % 30.1 % (21.3-54.2); Mean Corpuscular HGB Conc 28.8 GM/DL (32-36); Mean Corpuscular Volume 76.8 FL (87-102); Mean Platelet Volume 9.5 FL (9.6-12.0); Monocytes % 5.9 % (1.7-12.7); Neutrophils % 54.5 % (38.7-73.9); Platelet Count 336 T/CUMM (130-400); Red Blood Count 4.57 MC/CUMM (3.8-5.5); White Blood Count 10.4 T/CUMM (4-12)
[2019-11-28 06:30] LABS: Hemoglobin 10.1 GM/DL (12.0-16.0)
[2019-11-28 06:32] LABS: Osmolality,Calculated 274.7 MOS/KG (273-304)
[2019-11-28 06:36] LABS: Eosinophils 7 % (0-10); Lymphocytes 24 % (20-55); Segmented Neutrophils 65 % (50-85); Total Cells Counted 100
[2019-11-28] MEDS ORDERED: BUPIVACAINE MPF 0.25% 30 ML VIAL ONE (06:36)
[2019-11-28] MEDS ORDERED: LIDOCAINE 1%/EPI INJ 20 ML VIAL ONE (06:36)
[2019-11-28 06:37] LABS: Hypochromasia Slight; Microcytosis 1+; Platelet Estimate Normal
[2019-11-28] MEDS ORDERED: ONDANSETRON 4 MG/2 ML VIAL IV PRN (08:07)
[2019-11-28] MEDS ORDERED: MEPERIDINE 25 MG/1 ML VIAL IV PRN (08:07)
[2019-11-28] MEDS ORDERED: propofoL 200 MG/20 ML VIAL IV ONE (08:11)
[2019-11-28] MEDS ORDERED: LIDOCAINE 2% 5 ML VIAL ONE (08:11)
[2019-11-28] MEDS ORDERED: fentaNYL 100 MCG/2 ML VIAL ONE (08:11)
[2019-11-28] MEDS ORDERED: MIDAZOLAM 2 MG/2 ML VIAL ONE (08:11)
[2019-11-28] MEDS ORDERED: SEVOFLURANE 1 UNIT/15 MINUTE INH ONE (08:11)
[2019-11-28] MEDS: GABAPENTIN 400 MG CAPSULE PO SCH ×3 (09:24→22:07)
[2019-11-28] MEDS: ERTAPENEM 1,000 MG in SODIUM CHLORIDE 0.9% 100 ML IV SCH (09:24)
[2019-11-28] MEDS: METHOCARBAMOL 750 MG TABLET PO SCH ×3 (09:24→22:08)
[2019-11-28] MEDS: PANTOPRAZOLE 40 MG TABLET PO SCH (09:24)
[2019-11-28] MEDS: DICLOFENAC SODIUM 75 MG TABLET PO SCH ×3 (09:25→22:06)
[2019-11-28] MEDS: ONDANSETRON 4 MG/2 ML VIAL IV PRN ×2 (14:51→22:13)
[2019-11-28] MEDS: ARIPiprazole 5 MG TABLET PO SCH (22:07)
[2019-11-28] MEDS: clonazePAM 0.5 MG TABLET PO SCH (22:07)
[2019-11-28] MEDS: DULoxetine 30 MG CAPSULE PO SCH (22:07)
[2019-11-29] MEDS: HYDROmorphone 2 MG/1 ML VIAL IV PRN ×2 (03:47→08:31)
[2019-11-29] MEDS: ENOXAPARIN 40 MG/0.4 ML SYRINGE SUBCUT SCH (06:19)
[2019-11-29] MEDS: PANTOPRAZOLE 40 MG TABLET PO SCH (08:32)
[2019-11-29] MEDS: GABAPENTIN 400 MG CAPSULE PO SCH (08:32)
[2019-11-29] MEDS: DICLOFENAC SODIUM 75 MG TABLET PO SCH (08:32)
[2019-11-29] MEDS: ONDANSETRON 4 MG/2 ML VIAL IV PRN (09:48)
[2019-11-29] MEDS: METHOCARBAMOL 750 MG TABLET PO SCH (09:48)
[2019-11-29] MEDS ORDERED: SODIUM HYPOCHLORITE 0.25% IRRIG 473 ML BOTTLE TOP SCH (11:00)
[2019-11-29 11:34] VITALS: BP 132/53
== END 2019-11-29 12:49 | disposition home health service (06) | DRG 908 ==
LOC: N.5E 10:49
PROVIDERS: ADMIT Surgery; ATTEND Surgery